=== PATIENT | female | born 1970 | race Native Hawaiian/Other Pacific Islander ===

== ENCOUNTER 2017-03-05 18:16 | Emergency (ER) | payer OTHER ==
[~2017-03-05] VITALS: Ht 162.6 cm; Wt 117.9 kg
[2017-03-05] MEDS ORDERED: OMEP20CA PO (18:28)
[2017-03-05] MEDS ORDERED: METFTAB PO (18:29)
[2017-03-05] MEDS ORDERED: SYNTHROID137 MC1 PO (18:30)
[2017-03-05] MEDS ORDERED: KLOR-CON M1010 MEQ OR (18:31)
== END 2017-03-05 21:45 | disposition home or self-care (01) ==
LOC: ED 18:16
DX: M17.11 Unilateral primary osteoarthritis, right knee (principal); M16.11 Unilateral primary osteoarthritis, right hip
CPT/HCPCS: 85379; 96372; 99283; J1885

== ENCOUNTER 2017-04-17 12:23 | Outpatient (CLI) | payer OTHER ==
[~2017-04-17 12:23] MED LIST: KLOR-CON M1010 MEQ OR; METFTAB PO; OMEP20CA PO; SYNTHROID137 MC1 PO
== END 2017-04-17 22:04 | disposition home or self-care (01) ==
LOC: RAD 12:23
DX: M79.89 Other specified soft tissue disorders (principal)

== ENCOUNTER 2017-04-21 13:04 | Outpatient (CLI) | payer OTHER | END 2017-04-21 22:01 | disposition home or self-care (01) | LOC: MAMMO 13:04 | DX: Z12.31 Encounter for screening mammogram for malignant neoplasm of breast (principal) ==

== ENCOUNTER 2017-04-22 09:28 | Outpatient (CLI) | payer OTHER ==
[2017-04-22 10:22] LABS: PLATELET COUNT 249 K/uL (152-353)
[2017-04-22 10:23] LABS: POTASSIUM 4.6 mmol/L (3.6-5.2)
== END 2017-04-22 10:30 | disposition home or self-care (01) ==
LOC: LABW 09:28
PROVIDERS: Internal Medicine
DX: E11.9 Type 2 diabetes mellitus without complications (principal); E03.8 Other specified hypothyroidism
CPT/HCPCS: 36415; 80053; 80061; 81000; 82043; 82570; 83036; 84439; 84443; 85027

== ENCOUNTER 2017-05-29 09:59 | Outpatient (CLI) | payer OTHER | END 2017-05-29 23:57 | disposition home or self-care (01) | LOC: MAMMO 09:59 → US 11:00 → MAMMO 11:00 | DX: R92.8 Other abnormal and inconclusive findings on diagnostic imaging of breast (principal) ==

== ENCOUNTER 2017-08-25 10:46 | Outpatient (CLI) | payer OTHER | END 2017-08-25 19:59 | disposition home or self-care (01) | LOC: RAD 10:46 | DX: M54.5 Low back pain (principal); R53.82 Chronic fatigue, unspecified; R68.82 Decreased libido | CPT/HCPCS: 36415; 82672; 83735; 84403 ==

== ENCOUNTER 2020-07-11 15:47 | Outpatient (CLI) | payer OTHER ==
[2020-07-11 16:00] LABS: PLATELET COUNT 246 K/uL (152-353)
[2020-07-11 16:50] LABS: POTASSIUM 6.4 mmol/L (3.6-5.2)
== END 2020-07-11 19:29 | disposition home or self-care (01) ==
LOC: LAB 15:47
PROVIDERS: ATTEND Internal Medicine
DX: Z00.00 Encounter for general adult medical examination without abnormal findings (principal); Z13.820 Encounter for screening for osteoporosis; Z79.899 Other long term (current) drug therapy
CPT/HCPCS: 80053; 80061; 81000; 82306; 83036; 84439; 84443; 85027

== ENCOUNTER 2020-11-02 09:50 | Outpatient (CLI) | payer OTHER | END 2020-11-02 22:04 | disposition home or self-care (01) | LOC: LAB 09:50 | PROVIDERS: ATTEND Internal Medicine | DX: L08.9 Local infection of the skin and subcutaneous tissue, unspecified (principal) | CPT/HCPCS: 87070; 87077; 87185; 87186; 87205 ==

== ENCOUNTER 2021-07-23 14:41 | Outpatient (CLI) | payer OTHER | END 2021-07-23 20:16 | disposition home or self-care (01) | LOC: MAMMO 14:41 | PROVIDERS: ATTEND Internal Medicine | DX: Z12.31 Encounter for screening mammogram for malignant neoplasm of breast (principal) ==

== ENCOUNTER 2022-11-21 13:50 | Outpatient (CLI) | payer OTHER | END 2022-11-21 20:22 | disposition home or self-care (01) | LOC: MAMMO 13:50 | PROVIDERS: ATTEND Physician Assistant | DX: Z12.31 Encounter for screening mammogram for malignant neoplasm of breast (principal) ==